=== PATIENT | female | born 1985 | race Caucasian/White ===

== ENCOUNTER 2016-09-17 13:00 | Outpatient (CLI) | payer MEDICAID ==
[~2016-09-17] VITALS: Ht 152.4 cm; Wt 73.2 kg
[2016-09-17 13:07] VITALS: Ht 152.4 cm; Wt 73.2 kg
[2016-09-17 13:14] VITALS: BP 119/68; PULSE 106; RESP 18
[2016-09-17] MEDS ORDERED: PRENAT PO (13:17)
--- NOTE | 2016-09-17 14:04 | RADRPT ---
PROCEDURE: US OB biophysical profile. CLINICAL INDICATION: evaluation TECHNIQUE: Multiple sonographic images of the pelvis were obtained. The images were reviewed on a PACS workstation. COMPARISON: No prior studies are available for comparison. FINDINGS: There is a single viable intrauterine gestation. Cardiac activity is present with 134 beats per min brian. There is a vertex presentation. The placenta is posterior and fundal. There is no evidence of placental abruption. There is a normal amount of amniotic fluid with an DEBBY = 13.6 cm. Biophysical profile: movement 2/2 tone 2/2. breathing 2/2 DEBBY 2/2 Total 10/20 RPTAT: AA . IMPRESSION: Normal biophysical profile. Physician Federico Date Time Electronically viewed and signed by Physician Federico on 09/17/2016 14:03 /
--- NOTE | 2016-09-17 14:06 | RADRPT ---
PROCEDURE: Obstetrical ultrasound CLINICAL INDICATION: Contractions TECHNIQUE: Multiple sonographic images of the pelvis were obtained. The images were reviewed on a PACS workstation. COMPARISON: None FINDINGS: The cervix is not well visualized. There is a single viable intrauterine gestation. Cardiac activity is present with 128 beats per minute. There is a vertex presentation. The placenta is posterior and fundal. There is no evidence for an abruption or placenta previa. There is a normal amount of amniotic fluid with an DEBBY = 13.6 cm. Measurements were made in order to determine age. The results are as follows (cm): BPD =9.43 HC =33.74 AC =33.87 FL =7.42 Estimated gestational age by ultrasound of approximately 38 weeks, 2 days. The estimated date of delivery by ultrasound is 09/29/2016. Estimated gestational age by LMP of approximately 38 weeks, 6 days. The estimated date of delivery by LMP is 09/25/2016. EFW = 3368 grams (46th percentile) IMPRESSION: Single viable intrauterine gestation of approximately 38 weeks, 2 days . The estimated date of delivery is 09/29/2016 . Dating by ultrasound is within 4 days of dating by LMP. Cephalic presentation. Normal DEBBY. Estimated weight is in the 46th percentile. RPTAT: EE Physician Federico Date Time Electronically viewed and signed by Physician Federico on 09/17/2016 14:05 /
--- NOTE | 2016-09-17 14:50 | CONS ---
Date/Time of Note Date/Time of Note DATE: 09/17/16 TIME: 14:43 Consultation Date/Type/Reason Admit Date/Time September 17, 2016 OB triage Reason for Consultation This patient is a 31 years old 3 para 2 who had both her deliveries in the past spontaneously. She came to OB triage complaining of uterine contraction for 3 days as well as vaginal spotting Her care so far was uncomplicated Examination she is a well-developed well-nourished lady in her late with a blood pressure of 119/68, pulse rate 106, respiration 98, and temperature 98.2, On examination her ear nose throat appear to be normal ,neck was normal, abdomen was soft ,she was having occasional contractions fetus had normal movements. heart tone was normal with good variability occasional acceleration no evidence of deceleration. On pelvic examination ;cervix was only 0.5 cm 50% effaced and -3 station. Membranes were intact. Constitutional: No chills, No diaphoresis, No disoriented, No febrile, No improved, No no complaints, No other, No poor po, No requiring IVF, No requiring O2 Eyes: No discharge, No no complaints, No other, No pain, No redness, No visual change ENT: No bleeding, No congestion, No discharge, No dysphagia, No no complaints, No other, No pain, No sore throat Respiratory: No cough, No no complaints, No other, No pain, No pleuritic pain, No shortness of breath, No sputum, No wheezing Cardiovascular: No chest pain, No edema, No lightheadedness, No no complaints, No orthopenea, No other, No palpitations, No paroxysmal nocturnal dyspnea Gastrointestinal: No blood, No constipation, No decreased appetite, No diarrhea , No flatus, No nausea, No no complaints, No other, No pain, No passing stool, No vomiting Genitourinary: other (I mentioned on pelvic exam the cervix was only 0.5 cm open 50% effaced and -3 station), No bleeding, No discharge, No dysuria, No flank pain, No hematuria, No no complaints Musculoskeletal: No back pain, No bone/joint pain, No neck pain, No no complaints, No other, No restricted range of motion, No swelling Skin: No bruising, No erythema, No laceration, No no complaints, No other, No pruritis, No rash, No skin lesions Neurologic: other (Knee-jerk reflex were normal), No confusion, No dizziness, No focal-weakness, No headache, No no complaints , No seizure, No syncope Endocrine: No dry skin, No no complaints, No other, No polydypsia, No polyuria , No temp intolerance Additional Comments On ultrasound study the report was a single viable intrauterine gestation with heart rate of 134 bpm in vertex presentation , placenta was posterior, no evidence of abruption, her amniotic fluid index was reported 13.6 cm biophysical profile 8.8 estimated weight was 3368 g 46 percentile With this negative findings hydration was given to the patient and after 2 hours she felt much better with no complaint of pain she was discharged home to be followed in the clinic. She was advised to return to triage area in case of vaginal bleeding ,active labor She understands all of those and will be going home and attend clinic Social History Smoking Status: Never smoker Exam/Review of Systems Vital Signs Vitals Vital Signs Date Time Temp Pulse Resp B/P Pulse Ox O2 Delivery O2 Flow Rate FiO2 09/17/16 13:14 98.2 106 18 119/68 Room Air FREDERICK MURILLO MD Sep 17, 2016 14:50
--- NOTE | 2016-09-17 15:38 | TRIAGE ---
OB Triage Datetime Report Generated by CPN: 09/17/2016 15:38 Datetime: 09/17/2016 13:43 Labor Evaluation Frequency: OCC Monitor Mode: External Quality: Mild Pattern: Normal: <= 5 Contractions in 10 Minutes Resting Tone [place]: Relaxed Contraction Comments: Uterine irritability noted with occasional contractions Heart Rate FHR Baseline Rate: 125 Monitor Mode: External US FHR Baseline Changes: No Baseline Change Variability: Moderate 6-25 bpm Accelerations: 15X15 Decelerations: None Category: Category I Pain Assessment Pain Scale: 5 Pain Presence: Intermittent Pain Type: Contraction; Pressure Pain Location: Abdomen; Back Pain Goal: 0 Pain Relief Measures: Comfort Measures Datetime: 09/17/2016 13:22 Vaginal Exam Dilatation (cms): 0.5 Effacement (%): 50 Station: -3 Exam By: MD Umaña Datetime: 09/17/2016 13:11 Time of Arrival: 09/17/2016 12:54 EGA: 38.6 Arrived By: Ambulatory Arrived From: Office Chief Complaint: UC x3 days Movement: Present Contractions: Regular Rupture of Membranes: Denies Vaginal Bleeding: Normal Show Vaginal Discharge: Denies Recent Sexual Intercouse: Denies Abdominal Trauma: Not Applicable Patient Complaints: Contractions Time Provider Notified: 09/17/2016 13:09 Provider Notified: Chasidy Initial Plan: NST, VE, BPP/DEBBY, EFW Datetime: 09/17/2016 13:10 Assessment Type: Triage Maternal Assessment Level of Consciousness: Fully Conscious DTR's/Clonus: DTRs 2+; No Clonus Headache: Denies Blurred Vision: No Respiratory Effort: Unlabored; Regular Rhythm; Equal Expansion Breath Sounds, Left: Clear and Equal Breath Sounds, Right: Clear and Equal Nausea/Vomiting: Denies RUQ Epigastric Pain: Denies Lower Extremities Edema: None Degree: None Upper Extremities Edema: None Degree: None Facial Edema: None Fall Risk Assessment History of Falling: (0) No Secondary Diagnosis: (0) No Ambulatory Aid: (0) Bedrest/Nurse Assist IV Therapy: (0) No Gait: (0) Normal/Bedrest/Immobile Mental Status: (0) Oriented to Own Ability Fall Score: 0 Fall Risk Score Definition: No Risk: No action required Vaginal Exam Dilatation (cms): 0.5 Effacement (%): 50 Station: -3 Exam By: Loli STRINGER Membrane Status: Intact Datetime: 09/17/2016 13:09 Pain Assessment Pain Scale: 5 Pain Presence: Intermittent Pain Type: Contraction; Pressure Pain Location: Abdomen; Back Pain Goal: 0 Pain Relief Measures: Comfort Measures Datetime: 09/17/2016 13:03 Stage of : OB Triage
== END 2016-09-17 14:55 | disposition home or self-care (01) ==
LOC: OBT 13:00 → L-D 13:01 → OBT 14:55
PROVIDERS: ATTEND Obstetrics & Gynecology
DX: O62.9 Abnormality of forces of labor, unspecified (principal); Z3A.38 38 weeks gestation of pregnancy
CPT/HCPCS: 76815; 76818; Z7500; G0463

== ENCOUNTER 2016-10-05 10:45 | Inpatient (IN) | payer MEDICAID ==
[~2016-10-05] VITALS: Ht 152.4 cm; Wt 74.5 kg
[~2016-10-05 10:45] MED LIST: PRENAT PO
[2016-10-05 11:04] VITALS: Ht 152.4 cm; Wt 74.5 kg
[2016-10-05 11:06] VITALS: BP 113/67; PULSE 73; RESP 20
--- NOTE | 2016-10-05 11:54 | RADRPT ---
PROCEDURE: Obstetrical ultrasound for biophysical profile CLINICAL INDICATION: Biophysical profile. . Post dates TECHNIQUE: Obstetrical ultrasound of the uterus for biophysical profile. Transabdominal views are obtained. COMPARISON: 09/17/2016 FINDINGS: Single intrauterine gestation. Presentation: Cephalic. Placenta: Left lateral No evidence of placental abruption. No evidence of placenta previa. breathing movement = 2/2 tone = 2/2 motion = 2/2 DEBBY = 2/2 DEBBY = 12.6 cm heart rate: 122 beats per minute IMPRESSION: Single intrauterine gestation. Biophysical profile 10/20 RPTAT: AADD .Adarsh Azul MD, MD Date Time Electronically viewed and signed by .Adarsh Azul MD, on 10/05/2016 11:54 .B/
--- NOTE | 2016-10-05 12:02 | RADRPT ---
PROCEDURE: Obstetrical ultrasound CLINICAL INDICATION: POST DATES TECHNIQUE: Multiple sonographic images of the pelvis were obtained. The images were reviewed on a PACS workstation. COMPARISON: Obstetrical ultrasound from 09/17/2016 FINDINGS: The cervix is not well visualized. There is a single viable intrauterine gestation. Cardiac activity is present with 146 beats per minute. There is a vertex presentation. The placenta is left lateral in location. There is no evidence for an abruption or placenta previa. There is a subjectively normal amount of amniotic fluid. Measurements were made in order to determine age. The results are as follows (cm): BPD =9.39 HC =33.73 AC =33.63 FL =7.32 Estimated gestational age by ultrasound of approximately 38 weeks, 0 days. The estimated date of delivery by ultrasound is 10/19/2016. Estimated gestational age by LMP of approximately 41 weeks, 3 days. The estimated date of delivery by LMP was 09/25/2016. EFW = 3293 grams IMPRESSION: Single viable intrauterine gestation of approximately 38 weeks, 0 days . The estimated date of delivery is 10/19/2016 . Dating by ultrasound is within 24 days of dating by LMP. Cephalic presentation. RPTAT: EE Physician Federico Date Time Electronically viewed and signed by Physician Federico on 10/05/2016 12:02 /
[2016-10-05] MEDS ORDERED: MISOPROSTOL 200 MCG TAB PR PRN (12:30)
[2016-10-05] MEDS ORDERED: OXYTOCIN 30 UNITS/LR 500 ML IV PRN (12:30)
[2016-10-05] MEDS ORDERED: OXYTOCIN 30 UNITS/LR 500 ML IV SCH ×3 (12:30→14:30)
[2016-10-05] MEDS ORDERED: LIDOCAINE 1% (MPF) 30 ML INJ INJ PRN (12:30)
[2016-10-05] MEDS ORDERED: CARBOPROST 250 MCG INJ IM PRN (12:30)
[2016-10-05] MEDS ORDERED: BUTORPHANOL 2 MG INJ IV PRN ×2 (12:30)
[2016-10-05] MEDS ORDERED: METHYLERGONOVINE 0.2 MG INJ IM PRN (12:30)
[2016-10-05] MEDS ORDERED: MINERAL OIL LIGHT 10 ML VIAL TOP PRN (12:30)
[2016-10-05] MEDS ORDERED: IBUPROFEN 600 MG TAB PO PRN (12:30)
[2016-10-05] MEDS ORDERED: LACTATED RINGER'S 1,000 ML IV PRN (13:00)
[2016-10-05] MEDS: LACTATED RINGER'S 1,000 ML IV SCH ×2 (13:38→20:10)
[2016-10-05 14:06] LABS: BASOPHILS % 0.3 % (0.0-2.0); EOSINOPHILS # 0.1 10^3/ul (0.0-0.5); EOSINOPHILS % 0.7 % (0.0-7.0); HEMATOCRIT 35.3 % (37.0-47.0); HEMOGLOBIN 12.4 g/dl (12.0-16.0); LYMPHOCYTES # 2.9 10^3/ul (0.8-2.9); LYMPHOCYTES % 24.2 % (15.0-51.0); MEAN CORPUSCULAR HEMOGLOBIN 31.3 pg (29.0-33.0); MEAN CORPUSCULAR HGB CONC 35.1 g/dl (32.0-37.0); MEAN CORPUSCULAR VOLUME 89.1 fl (82.0-101.0); MEAN PLATELET VOLUME 11.3 fl (7.4-10.4); MONOCYTE # 0.7 10^3/ul (0.3-0.9); MONOCYTES % 6.1 % (0.0-11.0); NEUTROPHIL # 8.2 10^3/ul (1.6-7.5); PLATELET COUNT 208 10^3/UL (140-415); RED BLOOD COUNT 3.96 10^6/ul (4.20-5.40); RED CELL DISTRIBUTION WIDTH 13.4 % (11.5-14.5)
[2016-10-05 14:14] LABS: INR 0.88; PROTIME 11.9 Sec (12.2-14.2); PT RATIO 0.9
[2016-10-05 14:15] LABS: PARTIAL THROMBOPLASTIN TIME 29.4 Sec (25.0-35.0)
[2016-10-05] MEDS ORDERED: ACETAMINOPHEN 325 MG TAB PO ONE (17:30)
[2016-10-05] MEDS ORDERED: DEXTROSE 5%-LR 1,000 ML IV SCH (19:30)
[2016-10-06] MEDS: LACTATED RINGER'S 1,000 ML IV SCH ×3 (03:33→13:09)
--- NOTE | 2016-10-06 05:43 | HP ---
Date/Time of Note Date/Time of Note DATE: 10/06/16 TIME: 05:31 OB - History Hx of Present Free Text/Dictation 31y.o A0 at 41w3d here for induction of labor for postdate. GBS neg initial VE ftp/30%/-3 EFM 6-7min mild u.c pitocin augmentation was initiated and somehow discontinued ( DEC? pos) and change to expectant management Chief Complaint: postdate Estimated Due Date: Sep 26, 2016 : 3 Para: 2 Spontaneous : 0 Therapeutic : 0 Care: Good Care Ultrasounds: Normal mid trimester US Obstetrical Complications: None Medical Complications: None Past Family/Social History * Past Medical, Surgical, Family and Obstetric Histories reviewed from chart. Blood Type: A- Rubella: immune RPR/VDRL: Negative GBS Status: Negative HBsAG: Negative OB Admission Exam Vital Signs Vital Signs Vital Signs Date Time Temp Pulse Resp B/P Pulse Ox O2 Delivery O2 Flow Rate FiO2 10/05/16 11:06 98.3 73 20 113/67 Room Air Physical Exam HEENT: WNL Heart: Rhythm Normal Lungs: Clear, Equal Abdomen: WNL Extremities: Normal Reflexes: Normal Cervical Dilatation: Fingertip Effacement: 25% Station: -3 Membranes: Intact Heart Rate: 120's Accelerations: Accelerations Present Decelerations: Variable Decelerations Varibility: Moderate Contractions on Admission: 6-10 Minutes Apart Intensity: Mild Last 72 hours Lab Results CBC & BMP 10/05/16 13:26 OB Assessment/Plan Reason for admission: induction of labor Plan: Expectant Management RAFAEL CORDOVA MD Oct 06, 2016 05:41
--- NOTE | 2016-10-06 05:49 | QN ---
Documentation Comment pitocin augmentation was discontinued due to nonreassuring fht but either way need to deliver ,without trial labor will not be able to determined foe route of delivery will start pitocin this morning to determine how to deliver RAFAEL CORDOVA MD Oct 06, 2016 05:49
[2016-10-06] MEDS ORDERED: CEFAZOLIN 1 GM INJ ONE (07:00)
[2016-10-06] MEDS ORDERED: CEFAZOLIN 2 GM/50 ML (PMX) 50 ML IVPB ONE (12:30)
[2016-10-06] MEDS ORDERED: METOCLOPRAMIDE 10 MG INJ IV PRN (15:30)
[2016-10-06] MEDS ORDERED: HYDROmorphONE 1 MG/ML SYG IV PRN ×2 (15:30)
[2016-10-06] MEDS ORDERED: TRIMETHOBENZAMIDE 100 MG/ML VIAL IM PRN ×2 (15:30)
[2016-10-06] MEDS ORDERED: KETOROLAC 30 MG INJ IV PRN (15:30)
[2016-10-06] MEDS ORDERED: ONDANSETRON 4 MG INJ IV PRN ×2 (15:30)
[2016-10-06] MEDS ORDERED: FENTAnyl 2MCG/ML-ROPIV 0.2% 100 ML BAG EPI SCH (15:30)
[2016-10-06] MEDS ORDERED: HYDROmorphONE (0.2 MG/ML) 10ML SYG IV PRN (15:30)
[2016-10-06] MEDS ORDERED: DIPHENHYDRAMINE 50 MG INJ IV PRN ×2 (15:30)
[2016-10-06] MEDS ORDERED: ZOLPIDEM 5 MG TAB PO PRN (15:30)
[2016-10-06] MEDS ORDERED: NALOXONE (0.4 MG/ML) INJ IV PRN (15:30)
[2016-10-06] MEDS ORDERED: ALBUTEROL 0.083% (NEB) 2.5 MG/3 ML AMP HHN PRN (15:30)
[2016-10-06] MEDS ORDERED: MEPERIDINE 25 MG INJ IV PRN (15:30)
[2016-10-06] MEDS ORDERED: FENTAnyl 50 MCG/ML VIAL IV PRN ×2 (15:30)
[2016-10-06] MEDS: HYDROmorphONE (0.2 MG/ML) 10ML SYG IV PRN ×4 (15:50→17:44)
--- NOTE | 2016-10-06 16:50 | OPR ---
Operative Report Planned Procedure Free Text/Dictation 31 years old female 3 para 2 admitted to to the house at 41 week and 3 day for induction of labor due to frequent and recurrent variable deceleration and not anticipating a fast and timely delivery this was discussed with the patient, and the plan of section agreed, she is being prepared for primary due to nonreassuring heart tracing category 2 on 3 heart rate Procedure date Oct 06, 2016 Procedure(s) Primary Performed by: ALLIE VAUGHN MD Assisting provider: FREDERICK MURILLO MD Anesthesiologist: MATTHEW RICHARD Pre-procedure diagnosis 41 weeks 3 days nonreassuring heart tracing category 2 and 3 Anesthesia Type: epidural Procedure Description Under satisfactory epidural anesthesia, the patient was prepped and draped and placed in a supine position, tilted to the left. Pfannenstiel incision was made , carried through the subcutaneous tissue. Bleeders brought under control with electrocautery. Fascia incised to the length of the incision. Rectus muscles from the fascia, divided midline. Peritoneum exposed, entered through a transverse incision. Exploration of abdomen revealed gravid uterus. Normal- appearing tubes and ovaries, bladder flap was developed. Transverse incision was made in the lower segment of the uterus. Amniotic sac ruptured. [Meconium stain] amniotic fluid noted. [] Nasal oropharyngeal suction was performed. The baby was handed to the team for immediate attention. Patient received 20 units of Pitocin placenta was delivered manually intact. Inspected it was covered with thick meconium uterine cavity cleaned with wet sponge and drainage established. Uterus closed in 2 layers using [Monocryl #1] in continuous fashion. Peritoneal cavity irrigated with warm saline. Sponge, needle and instrument count reported to be correct. Abdominal peritoneum closed with [2-0 chromic catgut] continuously. Rectus muscle approximated with [few interrupted 2-0 chromic catgut]. Fascia closed with #1 PDS], subcutaneous tissue approximated with few interrupted 2-0 chromic catgut skin closed with олег. Estimated blood loss [] 600 mL. Urine bag contained 200 []mL of clear urine patient tolerated procedure well and transferred to recovery room in good condition Post-Procedure Findings: Live Baby [boy], Apgars 7 and 8 Complications: None Pt Condition post procedure: stable Physician Certification I, the undersigned physician, hereby certify that I have discussed the procedure described in this consent form with this patient (or the patient's legal applications sales representative), including: * The risk and benefits of the procedure; * Any adverse reactions that may reasonably be expected to occur; * Any alternative efficacious methods of treatment which may be medically viable ; * The potential problems that may occur during recuperation; * Potential for blood transfusion and associated risks/benefits; and * Any research or economic interest I may have regarding this treatment. I further certify that the patient/legally responsible person was encouraged to ask question and that all questions were answered. ALLIE VAUGHN MD Oct 06, 2016 16:47
[2016-10-06 18:30] VITALS: BP 116/76; PULSE 97; RESP 16
[2016-10-06] MEDS ORDERED: CARBOPROST 250 MCG INJ IM PRN (19:00)
[2016-10-06] MEDS ORDERED: LANOLIN 7 GM TUBE TOP PRN (19:00)
[2016-10-06] MEDS ORDERED: OXYTOCIN 30 UNITS/LR 500 ML IV PRN (19:00)
[2016-10-06] MEDS ORDERED: CEFAZOLIN 1 GM/50 ML (PMX) 50 ML IVPB SCH (19:00)
[2016-10-06] MEDS ORDERED: ACETAMINOPHEN/CODEINE #3 TAB PO PRN (19:00)
[2016-10-06] MEDS ORDERED: METHYLERGONOVINE 0.2 MG INJ IM PRN (19:00)
[2016-10-06] MEDS ORDERED: OXYCODONE/ACETAMINOPHEN (5/325) TAB PO PRN (19:00)
[2016-10-06] MEDS ORDERED: MISOPROSTOL 200 MCG TAB PR PRN (19:00)
[2016-10-06] MEDS: OXYTOCIN 30 UNITS/LR 500 ML IV SCH ×2 (20:34→22:57)
[2016-10-06 20:35] VITALS: BP 100/58; PULSE 79; RESP 18
[2016-10-06] MEDS: SENNA/DOCUSATE NA (8.6MG/50MG) TAB PO SCH (21:00)
[2016-10-07] VITALS: BP 106/63; PULSE 48; RESP 18
[2016-10-07] MEDS: OXYTOCIN 30 UNITS/LR 500 ML IV SCH ×3 (01:37→11:43)
[2016-10-07 04:00] VITALS: BP 130/70; PULSE 71; RESP 18
[2016-10-07] MEDS: KETOROLAC 30 MG INJ IV PRN ×2 (06:44→14:00)
[2016-10-07 08:13] VITALS: BP 97/54; PULSE 94; RESP 18
[2016-10-07] MEDS: SENNA/DOCUSATE NA (8.6MG/50MG) TAB PO SCH ×2 (08:37→21:31)
--- NOTE | 2016-10-07 09:37 | PN ---
Date/Time of Note Date/Time of Note DATE: 10/07/16 TIME: 09:36 OB Subjective Subjective Subjective Post primary day 1 Afebrile Vital signs are stable Abdomen soft Incision dry Bowel sounds present Lochia moderate Extremities normal Ambulation encouraged Current Medications Medications (Trade) Dose Ordered Sig/Victoriano Route PRN Reason Start Time Stop Time Status Last Admin Dose Admin Lactated Ringer's (Lr) 1,000 ml @ 125 mls/hr Q8H IV 10/05/16 12:13 10/06/16 19:02 DC 10/06/16 13:09 Butorphanol Tartrate (Stadol) 1 mg Q2H PRN IV PAIN 10/05/16 12:30 10/06/16 19:02 DC Butorphanol Tartrate (Stadol) 2 mg Q2H PRN IV PAIN 10/05/16 12:30 10/06/16 19:02 DC Lidocaine 30 ml 30 ml ONCE PRN INJ EPISIOTOMY/TEARING 10/05/16 12:30 10/06/16 19:02 DC Oxytocin/Lactated Ringer's 500 ml @ 125 mls/hr ONCE -MAY REPEAT X1 IV 10/05/16 12:30 10/06/16 19:02 DC Oxytocin/Lactated Ringer's 500 ml @ 125 mls/hr ONCE IV 10/05/16 12:30 10/06/16 19:02 DC 10/06/16 15:52 Ibuprofen 600 mg 600 mg ONCE PRN PO Mild Pain (Pain Score 1-3) 10/05/16 12:30 10/06/16 19:02 DC Lactated Ringer's 1,000 ml @ 2,000 mls/hr Q30M PRN IV PRE-EPIDURAL BOLUS 10/05/16 13:00 10/06/16 19:02 DC 10/06/16 08:21 Oxytocin/Lactated Ringer's 500 ml @ 0 mls/hr ONCE PRN IV For Hemorrhage Management 10/05/16 12:30 10/06/16 19:02 DC Methylergonovine Maleate (Methergine) 0.2 mg ONCE PRN IM VAGINAL BLEEDING 10/05/16 12:30 10/06/16 19:02 DC 10/06/16 16:59 Carboprost Tromethamine (Hemabate) 250 mcg ONCE PRN IM VAGINAL BLEEDING 10/05/16 12:30 10/06/16 19:02 DC Misoprostol (Cytotec) 1,000 mcg ONCE PRN LA VAGINAL BLEEDING 10/05/16 12:30 10/06/16 19:02 DC Mineral Oil ONCE PRN TOP AT DELIVERY 10/05/16 12:30 10/06/16 19:02 DC Oxytocin/Lactated Ringer's 500 ml @ 0 mls/hr TITRATE IV 10/05/16 14:30 10/06/16 19:02 DC 10/05/16 17:09 Acetaminophen 650 mg 650 mg ONCE ONCE PO 10/05/16 17:30 10/05/16 17:31 DC 10/05/16 17:41 Dextrose/Lactated Ringer's 1,000 ml @ 125 mls/hr Q8H IV 10/05/16 19:30 10/06/16 19:03 DC Cefazolin Sodium/ Dextrose (Ancef 2 Gm/50 ml (Pmx)) 50 ml @ 100 mls/hr ONCE ONCE IVPB 10/06/16 12:30 10/06/16 12:59 DC Naloxone HCl (Narcan) 0.1 mg Q2M PRN IV FOR RESP RATE 8 OR LESS 10/06/16 15:30 10/07/16 15:29 Ketorolac Tromethamine (Toradol) 30 mg Q6H PRN IV PAIN 10/06/16 15:30 10/07/16 15:29 10/07/16 06:44 Hydromorphone HCl (Dilaudid) 0.2 mg Q3H PRN IV PAIN LEVEL 1-5 10/06/16 15:30 10/07/16 15:29 Hydromorphone HCl (Dilaudid) 0.4 mg Q3H PRN IV PAIN LEVEL 6-10 10/06/16 15:30 10/07/16 15:29 10/06/16 20:34 Diphenhydramine HCl (Benadryl) 25 mg Q6H PRN IV ITCHING 10/06/16 15:30 10/07/16 15:29 Ondansetron HCl (Zofran Inj) 4 mg Q6H PRN IV NAUSEA AND/OR VOMITING 10/06/16 15:30 10/07/16 15:29 Trimethobenzamide HCl (Tigan) 200 mg Q6H PRN IM NAUSEA AND/OR VOMITING 10/06/16 15:30 10/07/16 15:29 Zolpidem Tartrate (Ambien) 5 mg HS MAY REPEAT X 1 PRN PO INSOMNIA 10/06/16 15:30 10/07/16 15:29 Fentanyl/ Ropivacaine 100 ml EPIDURAL INFUSION EPI 10/06/16 15:30 10/06/16 19:03 DC Hydromorphone HCl (Dilaudid (Rec)) 0.2 mg PACU ORDER PRN IV MILD PAIN LEVEL 1-3 10/06/16 15:30 10/06/16 19:03 DC Hydromorphone HCl (Dilaudid (Rec)) 0.4 mg PACU ORDER PRN IV MODERATE PAIN LEVEL 4-6 10/06/16 15:30 10/06/16 19:03 DC 10/06/16 17:44 Fentanyl (Sublimaze) 25 mcg PACU ORDER PRN IV MILD PAIN LEVEL 1-3 10/06/16 15:30 10/06/16 19:03 DC Fentanyl (Sublimaze) 50 mcg PACU ODER PRN IV MODERATE PAIN LEVEL 4-6 10/06/16 15:30 10/06/16 19:03 DC Ketorolac Tromethamine (Toradol) 30 mg PACU ORDER PRN IV FOR PAIN AFTER IV NARCOTIC MED 10/06/16 15:30 10/06/16 19:03 DC 10/06/16 17:44 Ondansetron HCl (Zofran Inj) 4 mg PACU ORDER PRN IV NAUSEA AND/OR VOMITING 10/06/16 15:30 10/06/16 19:03 DC Metoclopramide HCl (Reglan) 10 mg PACU ORDER PRN IV NAUSEA AND/OR VOMITING 10/06/16 15:30 10/06/16 19:03 DC Trimethobenzamide HCl (Tigan) 200 mg PACU ORDER PRN IM NAUSEA AND/OR VOMITING 10/06/16 15:30 10/06/16 19:03 DC Albuterol (Proventil 0.083% (Neb)) 2.5 mg PACU ORDER PRN HHN WHEEZING 10/06/16 15:30 10/06/16 19:03 DC Meperidine HCl (Demerol) 25 mg PACU ORDER PRN IV POST-OP RIGORS 10/06/16 15:30 10/06/16 19:03 DC Diphenhydramine HCl (Benadryl) 25 mg PACU ORDER PRN IV PRURITUS 10/06/16 15:30 10/06/16 19:03 DC Acetaminophen/ Codeine Phosphate (Tylenol No.3) 1 tab Q4H PRN PO PAIN LEVEL 4-6 10/06/16 19:00 Acetaminophen/ Codeine Phosphate (Tylenol No.3) 2 tab Q4H PRN PO PAIN LEVEL 7-10 10/06/16 19:00 Oxycodone/ Acetaminophen (Percocet (5/ 325)) 1 tab Q4H PRN PO PAIN LEVEL 4-6 10/06/16 19:00 Oxycodone/ Acetaminophen (Percocet (5/ 325)) 2 tab Q4H PRN PO PAIN LEVEL 7-10 10/06/16 19:00 Ibuprofen (Motrin) 600 mg Q6 PO 10/07/16 18:00 Simethicone (Mylicon) 160 mg Q8H PRN PO DISTENSION/GAS/BLOATING 10/06/16 19:00 Senna/Docusate Sodium (Senokot-S) 1 tab BID PO 10/06/16 21:00 10/07/16 08:37 Lanolin (Baf-T-Rugvvi) 1 applic BEDSIDE MEDICATION PRN TOP BEDSIDE FOR AMANDA TO NIPPLES 10/06/16 19:00 Diphtheria/ Tetanus/Acell Pertussis 0.5 ml 0.5 ml ONCE ONCE IM* 10/09/16 09:00 10/09/16 09:01 Oxytocin/Lactated Ringer's 500 ml @ 0 mls/hr ONCE PRN IV For Hemorrhage Management 10/06/16 19:00 Methylergonovine Maleate (Methergine) 0.2 mg ONCE PRN IM VAGINAL BLEEDING 10/06/16 19:00 Carboprost Tromethamine (Hemabate) 250 mcg ONCE PRN IM VAGINAL BLEEDING 10/06/16 19:00 Misoprostol 1000 mcg 1,000 mcg ONCE PRN LA VAGINAL BLEEDING 10/06/16 19:00 Cefazolin Sodium 50 ml @ 100 mls/hr ONCE IVPB 10/06/16 19:00 10/06/16 19:29 DC 10/06/16 20:30 Oxytocin/Lactated Ringer's 500 ml @ 125 mls/hr Q4H IV 10/06/16 18:57 10/07/16 07:18 ALLIE VAUGHN MD Oct 07, 2016 09:37
[2016-10-07 10:53] LABS: BASOPHILS % 0.2 % (0.0-2.0); EOSINOPHILS % 0.3 % (0.0-7.0); HEMATOCRIT 25.4 % (37.0-47.0); HEMOGLOBIN 8.9 g/dl (12.0-16.0); LYMPHOCYTES # 2.5 10^3/ul (0.8-2.9); LYMPHOCYTES % 20.1 % (15.0-51.0); MEAN CORPUSCULAR HEMOGLOBIN 31.7 pg (29.0-33.0); MEAN CORPUSCULAR VOLUME 90.4 fl (82.0-101.0); MEAN PLATELET VOLUME 11.1 fl (7.4-10.4); MONOCYTE # 0.8 10^3/ul (0.3-0.9); MONOCYTES % 6.6 % (0.0-11.0); NEUTROPHIL # 8.9 10^3/ul (1.6-7.5); NEUTROPHILS % 72.2 % (39.0-77.0); PLATELET COUNT 159 10^3/UL (140-415); RED BLOOD COUNT 2.81 10^6/ul (4.20-5.40); RED CELL DISTRIBUTION WIDTH 13.4 % (11.5-14.5); WHITE BLOOD COUNT 12.3 10^3/ul (4.8-10.8)
[2016-10-07 11:49] VITALS: BP 104/57; PULSE 92; RESP 18
[2016-10-07 15:32] VITALS: BP 110/60; PULSE 86; RESP 19
[2016-10-07] MEDS: IBUPROFEN 600 MG TAB PO SCH (18:00)
[2016-10-07] MEDS ORDERED: OXYTOCIN 10 UNIT INJ ONE (18:01)
[2016-10-07] MEDS ORDERED: FENTAnyl 2MCG/ML-ROPIV 0.2% 100 ML ONE (18:02)
[2016-10-07] MEDS ORDERED: ONDANSETRON 4 MG INJ ONE (18:02)
[2016-10-07] MEDS ORDERED: PHENYLephrine (100 MCG/ML) 5ML SYG ONE ×3 (18:02)
[2016-10-07] MEDS ORDERED: morphine SULFATE/PF (10 MG/10 ML) INJ ONE (18:02)
[2016-10-07] MEDS ORDERED: EPHEDrine SULFATE 50 MG/5 ML SYG ONE (18:02)
[2016-10-07] MEDS: OXYCODONE/ACETAMINOPHEN (5/325) TAB PO PRN (19:42)
[2016-10-07 19:45] VITALS: BP 103/55; PULSE 88; RESP 18
[2016-10-08] MEDS: IBUPROFEN 600 MG TAB PO SCH ×5 (00:22→23:35)
[2016-10-08 03:45] VITALS: BP 100/67; PULSE 66; RESP 18
[2016-10-08 08:18] VITALS: BP 100/59; PULSE 69; RESP 19
[2016-10-08] MEDS: SENNA/DOCUSATE NA (8.6MG/50MG) TAB PO SCH ×2 (09:00→21:16)
--- NOTE | 2016-10-08 10:23 | PN ---
Date/Time of Note Date/Time of Note DATE: 10/08/16 TIME: 10:20 OB Subjective Subjective Subjective October 08, 2016 visit Post C section day 2 Doing Well Afebrile Ambulatory Chest Clear Breasts are soft , Nipples are intact Abdomen is soft Fundus is firm Moderate amount of lochia Incision is clean ,No evidence of infection No calf tenderness No ankle edema Laboratory Tests Test 10/07/16 10:34 White Blood Count 12.310^3/ul Red Blood Count 2.8110^6/ul Hemoglobin 8.9g/dl Hematocrit 25.4% Mean Corpuscular Volume 90.4fl Mean Corpuscular Hemoglobin 31.7pg Mean Corpuscular Hemoglobin Concent 35.0g/dl Red Cell Distribution Width 13.4% Platelet Count 46747^3/UL Mean Platelet Volume 11.1fl Neutrophils % 72.2% Lymphocytes % 20.1% Monocytes % 6.6% Eosinophils % 0.3% Basophils % 0.2% Nucleated Red Blood Cells % 0.0/100WBC Neutrophils # 8.910^3/ul Lymphocytes # 2.510^3/ul Monocytes # 0.810^3/ul Eosinophils # 0.010^3/ul Basophils # 0.010^3/ul Nucleated Red Blood Cells # 0.010^3/ul Current Medications Medications (Trade) Dose Ordered Sig/Victoriano Route PRN Reason Start Time Stop Time Status Last Admin Dose Admin Lactated Ringer's (Lr) 1,000 ml @ 125 mls/hr Q8H IV 10/05/16 12:13 10/06/16 19:02 DC 10/06/16 13:09 Butorphanol Tartrate (Stadol) 1 mg Q2H PRN IV PAIN 10/05/16 12:30 10/06/16 19:02 DC Butorphanol Tartrate (Stadol) 2 mg Q2H PRN IV PAIN 10/05/16 12:30 10/06/16 19:02 DC Lidocaine 30 ml 30 ml ONCE PRN INJ EPISIOTOMY/TEARING 10/05/16 12:30 10/06/16 19:02 DC Oxytocin/Lactated Ringer's 500 ml @ 125 mls/hr ONCE -MAY REPEAT X1 IV 10/05/16 12:30 10/06/16 19:02 DC Oxytocin/Lactated Ringer's 500 ml @ 125 mls/hr ONCE IV 10/05/16 12:30 10/06/16 19:02 DC 10/06/16 15:52 Ibuprofen 600 mg 600 mg ONCE PRN PO Mild Pain (Pain Score 1-3) 10/05/16 12:30 10/06/16 19:02 DC Lactated Ringer's 1,000 ml @ 2,000 mls/hr Q30M PRN IV PRE-EPIDURAL BOLUS 10/05/16 13:00 10/06/16 19:02 DC 10/06/16 08:21 Oxytocin/Lactated Ringer's 500 ml @ 0 mls/hr ONCE PRN IV For Hemorrhage Management 10/05/16 12:30 10/06/16 19:02 DC Methylergonovine Maleate (Methergine) 0.2 mg ONCE PRN IM VAGINAL BLEEDING 10/05/16 12:30 10/06/16 19:02 DC 10/06/16 16:59 Carboprost Tromethamine (Hemabate) 250 mcg ONCE PRN IM VAGINAL BLEEDING 10/05/16 12:30 10/06/16 19:02 DC Misoprostol (Cytotec) 1,000 mcg ONCE PRN AR VAGINAL BLEEDING 10/05/16 12:30 10/06/16 19:02 DC Mineral Oil ONCE PRN TOP AT DELIVERY 10/05/16 12:30 10/06/16 19:02 DC Oxytocin/Lactated Ringer's 500 ml @ 0 mls/hr TITRATE IV 10/05/16 14:30 10/06/16 19:02 DC 10/05/16 17:09 Acetaminophen 650 mg 650 mg ONCE ONCE PO 10/05/16 17:30 10/05/16 17:31 DC 10/05/16 17:41 Dextrose/Lactated Ringer's 1,000 ml @ 125 mls/hr Q8H IV 10/05/16 19:30 10/06/16 19:03 DC Cefazolin Sodium/ Dextrose (Ancef 2 Gm/50 ml (Pmx)) 50 ml @ 100 mls/hr ONCE ONCE IVPB 10/06/16 12:30 10/06/16 12:59 DC Naloxone HCl (Narcan) 0.1 mg Q2M PRN IV FOR RESP RATE 8 OR LESS 10/06/16 15:30 10/07/16 15:29 DC Ketorolac Tromethamine (Toradol) 30 mg Q6H PRN IV PAIN 10/06/16 15:30 10/07/16 15:29 DC 10/07/16 14:00 Hydromorphone HCl (Dilaudid) 0.2 mg Q3H PRN IV PAIN LEVEL 1-5 10/06/16 15:30 10/07/16 15:29 DC Hydromorphone HCl (Dilaudid) 0.4 mg Q3H PRN IV PAIN LEVEL 6-10 10/06/16 15:30 10/07/16 15:29 DC 10/06/16 20:34 Diphenhydramine HCl (Benadryl) 25 mg Q6H PRN IV ITCHING 10/06/16 15:30 10/07/16 15:29 DC Ondansetron HCl (Zofran Inj) 4 mg Q6H PRN IV NAUSEA AND/OR VOMITING 10/06/16 15:30 10/07/16 15:29 DC Trimethobenzamide HCl (Tigan) 200 mg Q6H PRN IM NAUSEA AND/OR VOMITING 10/06/16 15:30 10/07/16 15:29 DC Zolpidem Tartrate (Ambien) 5 mg HS MAY REPEAT X 1 PRN PO INSOMNIA 10/06/16 15:30 10/07/16 15:29 DC Fentanyl/ Ropivacaine 100 ml EPIDURAL INFUSION EPI 10/06/16 15:30 10/06/16 19:03 DC Hydromorphone HCl (Dilaudid (Rec)) 0.2 mg PACU ORDER PRN IV MILD PAIN LEVEL 1-3 10/06/16 15:30 10/06/16 19:03 DC Hydromorphone HCl (Dilaudid (Rec)) 0.4 mg PACU ORDER PRN IV MODERATE PAIN LEVEL 4-6 10/06/16 15:30 10/06/16 19:03 DC 10/06/16 17:44 Fentanyl (Sublimaze) 25 mcg PACU ORDER PRN IV MILD PAIN LEVEL 1-3 10/06/16 15:30 10/06/16 19:03 DC Fentanyl (Sublimaze) 50 mcg PACU ODER PRN IV MODERATE PAIN LEVEL 4-6 10/06/16 15:30 10/06/16 19:03 DC Ketorolac Tromethamine (Toradol) 30 mg PACU ORDER PRN IV FOR PAIN AFTER IV NARCOTIC MED 10/06/16 15:30 10/06/16 19:03 DC 10/06/16 17:44 Ondansetron HCl (Zofran Inj) 4 mg PACU ORDER PRN IV NAUSEA AND/OR VOMITING 10/06/16 15:30 10/06/16 19:03 DC Metoclopramide HCl (Reglan) 10 mg PACU ORDER PRN IV NAUSEA AND/OR VOMITING 10/06/16 15:30 10/06/16 19:03 DC Trimethobenzamide HCl (Tigan) 200 mg PACU ORDER PRN IM NAUSEA AND/OR VOMITING 10/06/16 15:30 10/06/16 19:03 DC Albuterol (Proventil 0.083% (Neb)) 2.5 mg PACU ORDER PRN HHN WHEEZING 10/06/16 15:30 10/06/16 19:03 DC Meperidine HCl (Demerol) 25 mg PACU ORDER PRN IV POST-OP RIGORS 10/06/16 15:30 10/06/16 19:03 DC Diphenhydramine HCl (Benadryl) 25 mg PACU ORDER PRN IV PRURITUS 10/06/16 15:30 10/06/16 19:03 DC Acetaminophen/ Codeine Phosphate (Tylenol No.3) 1 tab Q4H PRN PO PAIN LEVEL 4-6 10/06/16 19:00 Acetaminophen/ Codeine Phosphate (Tylenol No.3) 2 tab Q4H PRN PO PAIN LEVEL 7-10 10/06/16 19:00 Oxycodone/ Acetaminophen (Percocet (5/ 325)) 1 tab Q4H PRN PO PAIN LEVEL 4-6 10/06/16 19:00 10/08/16 09:09 Oxycodone/ Acetaminophen (Percocet (5/ 325)) 2 tab Q4H PRN PO PAIN LEVEL 7-10 10/06/16 19:00 10/07/16 19:42 Ibuprofen (Motrin) 600 mg Q6 PO 10/07/16 18:00 10/08/16 05:59 Simethicone (Mylicon) 160 mg Q8H PRN PO DISTENSION/GAS/BLOATING 10/06/16 19:00 10/07/16 15:02 Senna/Docusate Sodium (Senokot-S) 1 tab BID PO 10/06/16 21:00 10/08/16 09:00 Lanolin (Hkl-I-[id number]) 1 applic BEDSIDE MEDICATION PRN TOP BEDSIDE FOR AMANDA TO NIPPLES 10/06/16 19:00 Diphtheria/ Tetanus/Acell Pertussis 0.5 ml 0.5 ml ONCE ONCE IM* 10/09/16 09:00 10/09/16 09:01 Oxytocin/Lactated Ringer's 500 ml @ 0 mls/hr ONCE PRN IV For Hemorrhage Management 10/06/16 19:00 Methylergonovine Maleate (Methergine) 0.2 mg ONCE PRN IM VAGINAL BLEEDING 10/06/16 19:00 Carboprost Tromethamine (Hemabate) 250 mcg ONCE PRN IM VAGINAL BLEEDING 10/06/16 19:00 Misoprostol 1000 mcg 1,000 mcg ONCE PRN AR VAGINAL BLEEDING 10/06/16 19:00 Cefazolin Sodium 50 ml @ 100 mls/hr ONCE IVPB 10/06/16 19:00 10/06/16 19:29 DC 10/06/16 20:30 Oxytocin/Lactated Ringer's 500 ml @ 125 mls/hr Q4H IV 10/06/16 18:57 10/07/16 15:17 DC 10/07/16 11:43 Oxytocin 10 units 10 units STK-MED ONCE .ROUTE 10/07/16 18:01 10/07/16 18:05 DC Fentanyl/ Ropivacaine 100 ml @ ud STK-MED ONCE .ROUTE 10/07/16 18:02 10/07/16 18:31 DC Phenylephrine HCl (Jim-Synephrine Inj Syg) 500 mcg STK-MED ONCE .ROUTE 10/07/16 18:02 10/07/16 18:44 DC Ephedrine Sulfate 50 mg STK-MED ONCE .ROUTE 10/07/16 18:02 10/07/16 18:45 DC Ondansetron HCl (Zofran Inj) 4 mg STK-MED ONCE .ROUTE 10/07/16 18:02 10/07/16 18:45 DC Phenylephrine HCl (Jim-Synephrine Inj Syg) 500 mcg STK-MED ONCE .ROUTE 10/07/16 18:02 10/07/16 18:45 DC Morphine Sulfate (Duramorph) 10 mg STK-MED ONCE .ROUTE 10/07/16 18:02 10/07/16 18:45 DC Phenylephrine HCl (Jim-Synephrine Inj Syg) 500 mcg STK-MED ONCE .ROUTE 10/07/16 18:02 10/07/16 18:45 DC New born is doing well, Breast feeding FREDERICK MURILLO MD Oct 08, 2016 10:23
[2016-10-08 16:28] VITALS: BP 104/69; PULSE 76; RESP 18
[2016-10-08 20:00] VITALS: BP 112/68; PULSE 68; RESP 19
[2016-10-08] MEDS: ACETAMINOPHEN/CODEINE #3 TAB PO PRN (20:19)
[2016-10-09 04:08] VITALS: BP 103/67; PULSE 66; RESP 20
[2016-10-09] MEDS: IBUPROFEN 600 MG TAB PO SCH ×2 (05:41→13:08)
[2016-10-09] MEDS: OXYCODONE/ACETAMINOPHEN (5/325) TAB PO PRN (07:15)
[2016-10-09 08:30] VITALS: BP 109/68; PULSE 76; RESP 16
[2016-10-09] MEDS ORDERED: DIPHTH/TET/ACEL PERTUSS (ADULT) 0.5 ML VIAL IM* ONE (09:00)
--- NOTE | 2016-10-09 10:08 | PD.PPDC ---
[facility] Discharge Instruction Condition Patient Condition: Good Diet Diet: Resume Regular Diet Activity/Restrictions Activity: Normal Activity May Shower Restrictions: No Exercising No Lifting No Driving No Sexual Activity Nothing in the Vagina No [place] No Tampons, douche Wound/Drain Care Instructions Wound/Drain Care Instructions: Remove Steri Strips in 1 week Follow-up Follow-up with Physician: 4, Day/Days Provider Information: Appointment clinic in 4 days to discontinue ALLIE Baker MD Oct 09, 2016 10:08
--- NOTE | 2016-10-09 10:12 | DS ---
Date/Time of Note Date/Time of Note DATE: 10/09/16 TIME: 10:10 Discharge Summary Admission/Discharge Info Admit Date/Time Oct 05, 2016 at 12:06 Discharge Date/Time October 09, 2016 at 10 AM Discharge Diagnosis Day 3 post primary Patient Condition: Good Procedures Remedy Hx of Present Illness 41 weeks 3 days admitted for induction had category 3 heart tracing underwent primary Hospital Course Satisfactory recovery discharged home with follow-up instruction Home Meds Reported Medications Multivit/Min/Fol Ac/Iron/Pren* ( S*) 1 Tab Tab, 1 TAB PO DAILY, TAB 09/17/16 Follow-up Plan Appointment clinic in 4 days to discontinue олег Primary Care Provider Care Physician No Primary Time spent on discharge: < 30 minutes ALLIE VAUGHN MD Oct 09, 2016 10:12
[2016-10-09] MEDS: SENNA/DOCUSATE NA (8.6MG/50MG) TAB PO SCH (10:18)
[2016-10-09] MEDS: ACETAMINOPHEN/CODEINE #3 TAB PO PRN (16:26)
--- NOTE | 2016-10-12 10:29 | CONS ---
Date/Time of Note Date/Time of Note DATE: 10/12/16 TIME: 10:27 Consultation Date/Type/Reason Admit Date/Time Oct 05, 2016 at 12:06 Initial Consult Date 10/07/16 Type of Consultation: Anesthesiology Reason for Consultation Follow up 24 HR Interval Summary Free Text/Dictation Pt seen and examined at bedside 10/07/16 is POD#1 s/p emergency C/S fot CAT 3 tracing. Pt is doing well and stats she has minimal pain. Pt received Duramorph for post open pain relief. Denies N/V/D/C/BAINS/Numbness in extremities. Will follow up. Exam/Review of Systems Vital Signs Vitals Vital Signs Date Time Temp Pulse Resp B/P Pulse Ox O2 Delivery O2 Flow Rate FiO2 10/09/16 08:30 98.4 76 16 109/68 10/09/16 04:08 Room Air MATTHEW RICHARD Oct 12, 2016 10:29
== END 2016-10-09 16:30 | disposition home or self-care (01) | DRG 766 ==
LOC: OBT 10:45 → L-D 10:47 → OBT 12:05 → L-D 12:06 → PP1 10-06 19:34
PROVIDERS: ADMIT Obstetrics & Gynecology; ATTEND Obstetrics & Gynecology
PROC: 10D00Z1 Extraction of Products of Conception, Low, Open Approach (ICD-10-PCS; principal; 2016-10-06)
DX: O48.0 Post-term pregnancy (principal); O76 Abnormality in fetal heart rate and rhythm complicating labor and delivery; Z3A.41 41 weeks gestation of pregnancy
CPT/HCPCS: 62319; 76815; 76818; 85025; 85610; 85730; 86592; 86900; 86901; 88307; 90715; 99464; G0463; J0690; J1170; J1885; J2210; J2274; J2370; J2405; J2590; J3010; J7120; J7121